=== PATIENT | female | born 1950 | race Caucasian/White ===

== ENCOUNTER 2017-10-09 14:28 | Emergency (ER) | payer MEDICARE, OTHER ==
[~2017-10-09] VITALS: Ht 162.6 cm; Wt 122.5 kg
[~2017-10-09 14:28] MED LIST: ALBU90OI INH; ASPI81CH PO; ATOR10 PO; Acerola C500 MG PO; CEPH500 PO; CITA20 PO; Dazidox10 MG PO; FERR325 PO; FURO20 PO; HYDACE5 PO; IBUP800; LEVSOD100 PO; LISI20 PO; LISI5 PO; NEBI5 PO; OMEP20ER PO; OXYC5 PO; POTA10T PO; Prilosec Otc20 MG PO; TRAM50 PO; VITAMIN D-32000 UNI1 PO; Zofran Odt8 MG PO
[2017-10-09 15:00] LABS: BASOPHILS ABSOLUTE AUTO 0.04 K/mm3 (0.00-0.23); BASOPHILS PERCENT AUTO 1 % (0-2); EOSINOPHILS ABSOLUTE AUTO 0.21 K/mm3 (0.00-0.68); EOSINOPHILS PERCENT AUTO 3 % (0-6); Hematocrit 36.3 % (33.0-51.0); Hemoglobin 11.9 g/dL (11.5-16.0); IMMATURE GRAN ABSOLUTE AUTO 0.02 K/mm3 (0.00-0.10); IMMATURE GRAN PERCENT AUTO 0 % (0-1); LYMPHOCYTES ABSOLUTE AUTO 1.52 K/mm3 (0.84-5.20); LYMPHOCYTES PERCENT AUTO 22 % (21-46); MONOCYTES ABSOLUTE AUTO 0.58 K/mm3 (0.16-1.47); MONOCYTES PERCENT AUTO 8 % (4-13); Mean Corpuscular HGB 28.5 pg (26.0-34.0); Mean Corpuscular HGB Conc 32.8 g/dL (31.5-36.5); Mean Corpuscular Volume 87 fL (80-100); Mean Platelet Volume 9.6 fL (9.1-12.4); NEUTROPHILS PERCENT AUTO 66 % (41-73); Platelet Count 255 K/mm3 (150-400); RDW Coefficient Variation 14.3 % (11.7-14.2); RDW Standard Deviation 45.9 fL (35.1-46.3); Red Blood Cell Count 4.18 M/mm3 (3.80-5.20); White Blood Cell Count 6.87 K/mm3 (4.00-11.30)
[2017-10-09 15:28] LABS: Alanine Aminotransfer (ALT/SGP 17 U/L (12-78); Albumin, Blood 3.4 g/dL (3.4-5.0); Albumin/Globulin Ratio 0.8 (0.8-1.8); Alk Phos 131 U/L (50-136); Anion Gap 9 mmol/L (6-16); Aspartate Aminotrans (AST/SGOT 13 U/L (12-37); Bilirubin, Total 0.4 mg/dL (0.1-1.0); Blood Urea Nitrogen 20 mg/dL (8-24); Bun/Creatinine Ratio 23.6 (12.0-20.0); CO2, Blood 25 mmol/L (21-32); Calcium, Blood 8.5 mg/dL (8.5-10.1); Chloride, Blood 104 mmol/L (98-108); Creatinine, Blood 0.85 mg/dL (0.40-1.00); Globulin, Blood 4.2 g/dL (2.2-4.0); Glomerular Filtration Rate >60 (60-); Glucose, Blood 107 mg/dL (70-99); Potassium, Blood 4.1 mmol/L (3.5-5.5); Sodium, Blood 138 mmol/L (136-145); Total Protein, Blood 7.6 g/dL (6.4-8.2)
[2017-10-09] MEDS ORDERED: ELIQUIS5 MG PO (16:47)
== END 2017-10-09 20:10 | disposition home or self-care (01) ==
LOC: ER 14:28 → CT 14:30 → EDSTATUS 14:30 → ER 20:10
PROVIDERS: Emergency Medicine
DX: C50.912 Malignant neoplasm of unspecified site of left female breast (principal); C50.911 Malignant neoplasm of unspecified site of right female breast; C79.31 Secondary malignant neoplasm of brain; G40.109 Localization-related (focal) (partial) symptomatic epilepsy and epileptic syndromes with simple partial seizures, not intractable, without status epilepticus; I11.0 Hypertensive heart disease with heart failure; I50.9 Heart failure, unspecified; E03.9 Hypothyroidism, unspecified
CPT/HCPCS: 70470; 80053; 85025; 96365; 96375; 99285; J1100; J1953; Q9967

== ENCOUNTER → 2018-12-14 | Outpatient (CLI) | payer MEDICARE, OTHER ==
[~2018-12-14] MED LIST changes: +ELIQUIS5 MG PO
[2018-12-14 17:30] LABS: Adenovirus F 40/41 Not Detected (NOT DETECT); Astrovirus Not Detected (NOT DETECT); Campylobacter Sp Not Detected (NOT DETECT); Cryptosporidium Not Detected (NOT DETECT); Cyclospora Cayetanensis Not Detected (NOT DETECT); E. Coli O157 Not Detected (NOT DETECT); Entamoeba Histolytica Not Detected (NOT DETECT); Enteroaggregative E. coli-EAEC Not Detected (NOT DETECT); Enteropathogenic E. coli-EPEC Not Detected (NOT DETECT); Enterotoxigenic E. coli-ETEC Not Detected (NOT DETECT); Giardia Lamblia Not Detected (NOT DETECT); Norovirus GI/GII Not Detected (NOT DETECT); Plesiomonas Shigelloides Not Detected (NOT DETECT); Rotavirus A Not Detected (NOT DETECT); Salmonella Sp Not Detected (NOT DETECT); Sapovirus Not Detected (NOT DETECT); Shiga Toxin-prod E. coli-STEC Not Detected (NOT DETECT); Shigella/Enteroin E. coli-EIEC Not Detected (NOT DETECT); Vibrio Cholerae Not Detected (NOT DETECT); Vibrio Sp Not Detected (NOT DETECT); Yersinia Enterocolitica Not Detected (NOT DETECT)
== END | disposition home or self-care (01) ==
LOC: LAB 09:51 → LAB SHORT 09:51 → EDSTATUS 12-10 12:25 → LAB FUT 12-10 12:25
PROVIDERS: Internal Medicine
DX: K58.9 Irritable bowel syndrome, unspecified (principal); R19.7 Diarrhea, unspecified
CPT/HCPCS: 87507

== ENCOUNTER 2018-12-22 08:50 | Emergency (ER) | payer MEDICARE, OTHER ==
[~2018-12-22] VITALS: Ht 162.6 cm; Wt 129.3 kg
[2018-12-22] MEDS ORDERED: Percocet 5-3251 EACH PO (13:50)
[2018-12-22] MEDS ORDERED: Cyclobenzaprine5 MG PO (13:50)
== END 2018-12-22 14:00 | disposition home or self-care (01) ==
LOC: ER 08:50
DX: S39.012A Strain of muscle, fascia and tendon of lower back, initial encounter (principal); I11.0 Hypertensive heart disease with heart failure; I50.9 Heart failure, unspecified; I48.91 Unspecified atrial fibrillation; Z85.3 Personal history of malignant neoplasm of breast; Z91.048 Other nonmedicinal substance allergy status; Z79.899 Other long term (current) drug therapy; W18.2XXA Fall in (into) shower or empty bathtub, initial encounter; Y92.002 Bathroom of unspecified non-institutional (private) residence as the place of occurrence of the external cause
CPT/HCPCS: 72100; 96374; 99283-25; A9270-GY; J1100; J1885; J3010

== ENCOUNTER 2019-05-24 08:32 | Day surgery (SDC) | payer MEDICARE, OTHER ==
[~2019-05-24 08:32] MED LIST changes: +Cyclobenzaprine5 MG PO; +Percocet 5-3251 EACH PO
[2019-06-10] MEDS ORDERED: FOLI1 PO (10:39)
[2019-06-10] MEDS ORDERED: FERSU300 PO (10:39)
== END 2019-05-24 23:01 | disposition home or self-care (01) ==
LOC: MOI US 08:32 → EDSTATUS 08:45 → MOI US 23:01
DX: C77.3 Secondary and unspecified malignant neoplasm of axilla and upper limb lymph nodes (principal); C50.112 Malignant neoplasm of central portion of left female breast
CPT/HCPCS: 38505; 76942; 88305; 88341; 88342; A4648

== ENCOUNTER → 2019-05-25 | Outpatient (CLI) | payer MEDICARE, OTHER ==
[~2019-05-25] MED LIST changes: +FERSU300 PO; +FOLI1 PO
[2019-05-26 13:56] LABS: Stool Occult Bld Immuno 1 Positive (NEGATIVE); Stool Occult Bld Immuno 2 Positive (NEGATIVE)
== END | disposition home or self-care (01) ==
LOC: LAB SHORT 11:00 → LAB 11:00 → LAB FUT 05-10 13:20
PROVIDERS: Internal Medicine Gastroenterology
DX: D64.9 Anemia, unspecified (principal)
CPT/HCPCS: 82274

== ENCOUNTER 2019-06-14 06:58 | Day surgery (SDC) | payer MEDICARE, OTHER | END 2019-06-14 23:09 | disposition home or self-care (01) | LOC: MOI US 06:58 | DX: C77.3 Secondary and unspecified malignant neoplasm of axilla and upper limb lymph nodes (principal) | CPT/HCPCS: 19285; 19286 ==

== ENCOUNTER 2019-06-24 09:30 | Day surgery (SDC) | payer MEDICARE, OTHER ==
[~2019-06-24] VITALS: Ht 165.1 cm; Wt 134.7 kg
--- NOTE | 2019-06-24 10:40 | NUR ---
History, Chart, Medications and Allergies reviewed before start of procedure.Patient confirms NPO status and agrees with scheduled surgery. Patient reports completing Chlorhexadine shower X2 prior to admission to hospital.Surgical site prepped with 2% Chlorhexidine cloth wipe. Lungs clear T/O to Auscultation.
--- NOTE | 2019-06-24 14:26 | NUR ---
Dressing to procedure site clean, dry, intact with no visible drainage, swelling, erythema or bruising noted. PATIENT STATES PAIN LEVEL AT 4/10.
--- NOTE | 2019-06-24 14:58 | NUR ---
RESUMED CARE OF PATIENT. PATIENT STATES SHE HAS 5/10 PAIN TO LEFT AXILLARY. STATES IT IS TOLERABLE. DENIES NAUSEA. TOLERATING PO FLUID. ENCOURAGED TO DEEP BREATH AND COUPH. BIOX 89-92% ON RA. APPLIED 2L O2/NC. WILL CONTINUE TO ASSESS NEED FOR SUPPLEMENTAL O2.
--- NOTE | 2019-06-24 15:27 | NUR ---
WILL REVIEW DISCHARGE INSTRUCTIONS WITH PATIENT WHEN HER ARRIVES TO DAY SURGERY.
--- NOTE | 2019-06-24 15:39 | NUR ---
SUPPLEMENTAL O2 REMOVED TO ATTEMPT WEAN. CONTINUOUS BIOX INACT. WILL MONITOR.
--- NOTE | 2019-06-24 15:45 | NUR ---
BIOX 87% RA. 2L O2/NC PLACED. PATIENT REPORTS THIS IS A NORMAL OCCURANCE FOR HER AFTER SURGERY. DENIES SOB. ENCOURAGED DEEP BREATHS AND COUGH.
--- NOTE | 2019-06-24 15:48 | NUR ---
LUNGS CLEAR T/O TO AUSCULTATION.
--- NOTE | 2019-06-24 16:22 | NUR ---
1618- UP TO DRESS. NO ASSIST NEEDED. TOOK A SHORT WALK. 1620- BACK IN BED AFTER UP TO WALK AND VOID. BIOX 89% RA. 2L O2/NC APPLIED.
--- NOTE | 2019-06-24 16:31 | NUR ---
INSTRUCTIONS ON BULB SUCTION CARE AND DRAINAGE GIVEN TO PATIENT. WRITTEN COPY GIVEN TO TAKE HOME. SITTING ON SIDE OF BED WEARING 2L O2/NC. BIOX 94%. TO DRIVE HOME. REPORT GIVEN TO MOMO FLETCHER RN.
--- NOTE | 2019-06-24 17:17 | NUR ---
1700- TITRATED FROM 1L NC DOWN TO ROOM AIR. PT ONLY HAS DESATS WHEN TALKING, BIOX RETURNS TO MID 90'S AFTER DEEP BREATHS. PT STATES THIS IS NORMAL FOR HER AFTER HER SURGERIES. THIS RN FEELS COMFORTABLE DISCHARGING PT AND PT READY TO BE DISCHARGED. HAS BEEN SITTING AT EDGE OF BED DOING WELL. FINISHED REVIEWING DC INSTRUCTIONS WITH PT AND IV REMOVED. RX GIVEN TO PT AND . Discharged via wheelchair to private car for ride home. DRG C/D/I TO SURGICAL SITE. PER DR RICHTER, PT TO RESTART BLOOD THINNER TOMORROW. PT AWARE.
== END 2019-06-24 17:15 | disposition home or self-care (01) ==
LOC: RAD 09:30 → ORSCMMR 09:31 → RAD 10:15
PROVIDERS: Surgery
PROC: 07B60ZZ Excision of Left Axillary Lymphatic, Open Approach (ICD-10-PCS; principal; 2019-06-24 11:15)
DX: C77.3 Secondary and unspecified malignant neoplasm of axilla and upper limb lymph nodes (principal); C50.112 Malignant neoplasm of central portion of left female breast; I11.0 Hypertensive heart disease with heart failure; I50.9 Heart failure, unspecified; I48.91 Unspecified atrial fibrillation; I42.8 Other cardiomyopathies; K21.9 Gastro-esophageal reflux disease without esophagitis; G47.33 Obstructive sleep apnea (adult) (pediatric); D64.9 Anemia, unspecified; E66.9 Obesity, unspecified; Z79.899 Other long term (current) drug therapy; Z79.01 Long term (current) use of anticoagulants; Z99.89 Dependence on other enabling machines and devices; Z91.048 Other nonmedicinal substance allergy status
CPT/HCPCS: 88307; A9270-GY; J0690; J1100; J2405; J2704; J2710; J3010; J7120; Q9968

== ENCOUNTER 2019-08-03 09:53 | Day surgery (SDC) | payer OTHER, MEDICARE ==
[~2019-08-03] VITALS: Ht 165.1 cm; Wt 133.9 kg
--- NOTE | 2019-08-03 11:23 | NUR ---
Ambulatory in Day Surgery. Surgical site prepped with 2% Chlorhexidine cloth wipe. History, Chart, Medications and Allergies reviewed before start of procedure.Lungs clear T/O to Auscultation. Patient confirms NPO status and agrees with scheduled surgery. Patient States Post-Procedure ride home has been arranged. Patient reports completing Chlorhexadine shower X2 prior to admission to hospital.
--- NOTE | 2019-08-03 11:31 | NUR ---
"DAY SURGERY RN | REPORT FROM GERRI FAUSTIN"
--- NOTE | 2019-08-03 12:09 | NUR ---
"DAY SURGERY RN | REPORT BACK TO GERRI FAUSTIN. NO ISSUES."
--- NOTE | 2019-08-03 14:29 | NUR ---
REVIEWED DC INSTERUCTIONS WITH PATIENT AND , BOTH OF WHOM VERBALIZE UNDERSTANDING OF ALL INSTRUCTIONS GIVEN. PT DRESSED SELF AT BEDSIDE. WAS MEDICATED FOR PAIN PRIOR TO DC HOME WITH 2 PERCOCET. PT HAS OXYCODONE AT HOME FOR CHRONIC PAIN AND DID NOT RECEIVE PRESCRIPTION TODAY. IV DC TIP INTACT AND PT DC HOME VIA WC WITH TO DRIVE HER.
--- NOTE | 2019-08-03 14:31 | NUR ---
NO SWELLING OR BLEEDING NOTED TO MEDIPORT AREA, UPPER CHEST, NECK.
== END 2019-08-03 22:45 | disposition home or self-care (01) ==
LOC: ORSCSDS 09:53 → ORSCMMR 09:53 → ORSCSDS 15:30
PROVIDERS: Surgery
PROC: B5161ZA Fluoroscopy of Right Subclavian Vein using Low Osmolar Contrast, Guidance (ICD-10-PCS; principal; 2019-08-03 11:45)
PROC: 05H533Z Insertion of Infusion Device into Right Subclavian Vein, Percutaneous Approach (ICD-10-PCS; principal; 2019-08-03 11:45)
DX: C50.112 Malignant neoplasm of central portion of left female breast (principal); I10 Essential (primary) hypertension; I48.91 Unspecified atrial fibrillation; Z79.01 Long term (current) use of anticoagulants; G47.33 Obstructive sleep apnea (adult) (pediatric); J45.909 Unspecified asthma, uncomplicated; K21.9 Gastro-esophageal reflux disease without esophagitis; G40.909 Epilepsy, unspecified, not intractable, without status epilepticus; Z79.899 Other long term (current) drug therapy; E66.01 Morbid (severe) obesity due to excess calories; Z68.42 Body mass index [BMI] 45.0-49.9, adult
CPT/HCPCS: 77001; C1788; J0690; J1100; J1642; J2250; J2405; J2704; J3010; J7120

== ENCOUNTER 2020-11-19 21:57 | Inpatient (IN) | payer MEDICARE, OTHER ==
[~2020-11-19] VITALS: Ht 162.6 cm; Wt 127.3 kg
[2020-11-19 22:35] LABS: Calcium, Ionized (POC) 1.18 mmol/L (1.10-1.46); Chloride (POC) 100 mmol/L (98-108); Creatinine (POC) 0.9 mg/dL (0.6-1.0); Glucose (ISTAT POC) 192 mg/dL (70-99); Hemoglobin (POC) 11.9 g/dL (12.0-16.0); Potassium (POC) 4.5 mmol/L (3.5-5.5); Sodium (POC) 129 mmol/L (135-148); Total CO2 (POC) 21 mmol/L (21-32)
[2020-11-19 22:37] LABS: Hematocrit 33.6 % (33.0-51.0); Hemoglobin 11.3 g/dL (11.5-16.0); Mean Corpuscular HGB 31.2 pg (26.0-34.0); Mean Corpuscular HGB Conc 33.6 g/dL (31.5-36.5); Mean Corpuscular Volume 93 fL (80-100); Mean Platelet Volume 9.9 fL (9.1-12.4); Platelet Count 225 K/mm3 (150-400); RDW Coefficient Variation 16.6 % (11.7-14.2); RDW Standard Deviation 56.5 fL (35.1-46.3); Red Blood Cell Count 3.62 M/mm3 (3.80-5.20)
[2020-11-19 22:39] LABS: BASOPHILS ABSOLUTE AUTO 0.01 K/mm3 (0.00-0.23); BASOPHILS PERCENT AUTO 2 % (0-2); EOSINOPHILS PERCENT AUTO 0 % (0-6); IMMATURE GRAN PERCENT AUTO 0 % (0-1); LYMPHOCYTES PERCENT AUTO 92 % (21-46); MONOCYTES ABSOLUTE AUTO 0.02 K/mm3 (0.16-1.47); MONOCYTES PERCENT AUTO 3 % (4-13); NEUTROPHILS ABSOLUTE AUTO 0.02 K/mm3 (1.96-9.15); NEUTROPHILS PERCENT AUTO 3 % (41-73)
[2020-11-19 22:41] LABS: White Blood Cell Count 0.65 K/mm3 (4.00-11.30)
[2020-11-19 22:50] LABS: Alanine Aminotransfer (ALT/SGP 22 U/L (12-78); Albumin, Blood 2.8 g/dL (3.4-5.0); Albumin/Globulin Ratio 0.6 (0.8-1.8); Alk Phos 117 U/L (50-136); Anion Gap 8 mmol/L (6-16); Aspartate Aminotrans (AST/SGOT 12 U/L (12-37); Bilirubin, Total 1.1 mg/dL (0.1-1.0); Blood Urea Nitrogen 24 mg/dL (8-24); Bun/Creatinine Ratio 25.4 (12.0-20.0); CO2, Blood 21 mmol/L (21-32); Calcium, Blood 8.7 mg/dL (8.5-10.1); Chloride, Blood 101 mmol/L (98-108); Creatinine, Blood 0.94 mg/dL (0.40-1.00); Globulin, Blood 4.5 g/dL (2.2-4.0); Glomerular Filtration Rate >60 (60-); Glucose, Blood 183 mg/dL (70-99); Potassium, Blood 4.7 mmol/L (3.5-5.5); Sodium, Blood 130 mmol/L (136-145); Total Protein, Blood 7.3 g/dL (6.4-8.2); Troponin I <0.015 ng/mL (0.000-0.040)
[2020-11-20 00:30] LABS: C DIFFICILE DNA NEGATIVE (Negative)
[2020-11-20 03:03] LABS: Source, Urine Catheter
[2020-11-20 03:06] LABS: Appearance, Urine Clear (Clear); Bilirubin, Urine Neg (Neg); Blood, Urine 2+ (Neg); Color, Urine Amber (P-Yellow); Glucose Qualitative, Urine Neg (Neg); Ketones, Urine Neg (Neg); Leukocyte Esterase, Urine Neg (Neg); Nitrite, Urine Neg (Neg); Protein, Urine 2+ (Neg); Specific Gravity, Urine 1.015 (1.003-1.022); Urobilinogen, Urine NORM (Normal)
[2020-11-20 03:10] LABS: Red Blood Cells, Urine 0-2 /hpf (0-2); Squamous Epithelial Cells Few /hpf (Few)
[2020-11-20 03:11] LABS: Amorphous Mod (0-Heavy); Bacteria Few /hpf; Hyaline Casts 0-2 /lpf (0-2); Mucus Light (0-Heavy)
--- NOTE | 2020-11-20 03:22 | NUR ---
ASSUMED PT CARE FROM RAMIN ZALDIVAR IN ED PT ARRIVED ON UNIT NOTED TO BE AFIB WITH HR 150-180'S. PER REPORT PT WAS GIVEN A CARDIZEM BOLUS WITH NO GTT TO FOLLOW, WELL WAS GIVEN ONE DOSE OF DIGOXIN WITH NO EFFECT. PT ARRIVED SALINE LOCKED. BP'S LABILE AND UNABLE TO OBTAIN AN ACCURATE BP. DR. RÍOS CALLED REGARDING ELEVATED HR AND LABILE BP'S. NEW ORDERS FOR AMIODARONE BOLUS FOLLOWED BY GTT, WELL TO TRANSFER FROM PCU TO ICU STATUS. PT ALERT AND ORIENTED AND ABLE TO MAKE NEEDS KNOWN. DENIES CHEST PAIN, DIZZINESS, WELL N/V. UNABLE TO COMPLETE HEALTH HX D/T PT FALLING ASLEEP MID CONVERSATION, WELL HER BEING VERY FORGETFUL AND IS A POOR HISTORIAN. RECTAL TUBE IN PLACE AND PATENT AND DRAINING TO GRAVITY. SHAW CATHETER PLACED D/T URINARY RETENTION, WHICH IS PATENT AND DRAINING TO GRAVITY. PT VERY TENDER AND RED WITH WHAT APPEARS TO BE YEAST TO PERINEAL AREA. OVERALL IS INTACT WITH MOTTLING NOTED TO BILATERAL KNEES AND FLUSHING NOTED TO LEFT CHEEK AND NECK. PERIPHERAL EXTREMITIES ARE COOL TO TOUCH AND DUSKY WITH POOR CAP REFILL. PT HAS A MEDIPORT TO RIGHT UPPER CHEST THAT WAS ACCESSED IN ED, WHICH CURRENTLY HAS AMIODARONE INFUSING AT 1MG/MIN. NS INFUSING AT 75MLS/HR PERIPHERALLY TO 20G IN RIGHT WRIST. CALL LIGHT WITHIN REACH AND PT IS ABLE TO MAKE NEEDS KNOWN. WILL CONTINUE TO MONITOR UNTIL REPORT IS HANDED OFF TO ONCOMING RN.
[2020-11-20 06:14] LABS: Hematocrit 30.9 % (33.0-51.0); Hemoglobin 10.4 g/dL (11.5-16.0); Mean Corpuscular HGB 30.8 pg (26.0-34.0); Mean Corpuscular HGB Conc 33.7 g/dL (31.5-36.5); Mean Corpuscular Volume 91 fL (80-100); Mean Platelet Volume 9.9 fL (9.1-12.4); Platelet Count 149 K/mm3 (150-400); RDW Coefficient Variation 16.6 % (11.7-14.2); RDW Standard Deviation 55.9 fL (35.1-46.3); Red Blood Cell Count 3.38 M/mm3 (3.80-5.20)
[2020-11-20 06:30] LABS: White Blood Cell Count 0.31 K/mm3 (4.00-11.30)
[2020-11-20 06:31] LABS: Alanine Aminotransfer (ALT/SGP 19 U/L (12-78); Albumin, Blood 2.5 g/dL (3.4-5.0); Albumin/Globulin Ratio 0.6 (0.8-1.8); Alk Phos 99 U/L (50-136); Anion Gap 6 mmol/L (6-16); Aspartate Aminotrans (AST/SGOT 5 U/L (12-37); Bilirubin, Total 0.8 mg/dL (0.1-1.0); Blood Urea Nitrogen 21 mg/dL (8-24); Bun/Creatinine Ratio 22.4 (12.0-20.0); CO2, Blood 22 mmol/L (21-32); Calcium, Blood 8.5 mg/dL (8.5-10.1); Chloride, Blood 102 mmol/L (98-108); Creatinine, Blood 0.94 mg/dL (0.40-1.00); Globulin, Blood 4.1 g/dL (2.2-4.0); Glomerular Filtration Rate >60 (60-); Glucose, Blood 197 mg/dL (70-99); Potassium, Blood 4.4 mmol/L (3.5-5.5); Sodium, Blood 130 mmol/L (136-145); Total Protein, Blood 6.6 g/dL (6.4-8.2)
[2020-11-20 07:08] LABS: BASOPHILS PERCENT MAN 0 % (0-2); EOSINOPHILS PERCENT MAN 0 % (0-6); LYMPHOCYTES ABSOLUTE MAN 0.28 K/mm3 (0.84-5.20); LYMPHOCYTES PERCENT MAN 92 % (21-46); MONOCYTES ABSOLUTE MAN 0.01 K/mm3 (0.16-1.47); MONOCYTES PERCENT MAN 4 % (4-13); NEUTROPHILS ABSOLUTE MAN 0.01 K/mm3 (1.96-9.15); SEG NEUTROPHILS PERCENT MAN 4 % (41-73); TOTAL CELLS COUNTED 25
--- NOTE | 2020-11-20 07:30 | NUR ---
PT A&O X4. SHE REPORTS FEELING VERY TIRED AND REQUESTS THAT BLINDS REMAIN CLOSED AND THE ROOM DARK. ECG SHOWS AFIB WITH RATE 110-130'S. BP STABLE. AMIODARONE DRIP CONTINUES @ 1 MG. LUNGS DIMINISHED IN THE BASES L>R. SPO2>90% ON 2 LITERS NASAL CANULA. EXERTIONAL DYSPNEA NOTED. PT REPORTS THAT THIS IS WORSE THAN HER BASELINE. NO NOTED COUGH. PT REPORTS INTERMITTENT NAUSEA. REQUESTS SIPS OF WATER AND HAS TOLERATED THAT WELL. RECTAL TUBE WITH SMALL AMOUNT OF BROWN, LIQUID STOOL. SHAW WITH SMALL AMOUNT OF DARK, YELLOW URINE TO BSD. MG+ RIDER INITIATED-SEE EMAR. ANTICIPATE ECHO LATER TODAY. CONTINUE NEUTROPENIC PRECAUTIONS.
--- NOTE | 2020-11-20 11:30 | NUR ---
PT REMAINS A&OX4. DENIES PAIN. NO SOB AT REST. ECG CONTINUES AFIB WITH RATE 110-130'S. AMIODARONE DRIP @ 0.5 MG/MIN. MAP TRENDING 50-70'S. PT CONTINUES TO REPORT INTERMITTENT NAUSEA. TOLERATING SIPS OF WATER. PT ALLOWED RN TO DO PARTIAL BATH AND PARTIAL LINEN CHANGE. TOLERATED WELL.
--- NOTE | 2020-11-20 15:14 | NUR ---
Spoke with Bedside RN Michelle prior to Pt visit and discussed case. Pt resting in bed with her eyes closed upon arrival. Pt's spouse Robson is at bedside. Offered therapeutic listening as Robson discusses Pt's denis with cancer for quite sometime. Pt has becomed increasing tired since her cancer fight, more so over the last few days since developing diarrhea. Continued therapeutic listening. Pt opens her eyes intermittently and attempts to engage in conversation but then closes her eyes. Briefly discussed code status and educated on life sustaining treatments of CPR including risk factors and implications. Pt does not respond or provide any thought. Pt's spouse Robson wishes for Pt's code status to remain full code. Continued therapeutic listening. Ended visit to allow spouse to visit with Pt. Palliative Care will remain available for supportive and therapeutic visits.
[2020-11-20] MEDS ORDERED: OXYC10TA19 PO (15:27)
--- NOTE | 2020-11-20 16:00 | NUR ---
PT REPORTS NAUSEA AND GENERALIZED PAIN-MED WITH ZOFRAN 4 MG IV AND OXYCODONE 10 MG PO X 1-SEE EMAR. APROX. 150 CC LIQUID STOOL OUT THIS SHIFT. PT ALSO GIVEN IMMODIUM PO-SEE EMAR. PT DRANK AN ENSURE WITH MEDS. ECG CONTINUES AFIB WITH RATE 110-130'S. HR UP TO 170'S WITH EXERTION AND PT NOTED TO HOW PROFOUND EXERTIONAL DYSPNEA. MAINTAINS SATS>90% ON 2 LITERS NASAL CANULA. SHAW CONTINUES WITH SMALL AMOUNT OF DARK, YELLOW URINE TO UROMETER. HAD LENGHTY DISCUSSION WITH PT AND SPOUSE REGARDING RESUSCITATION/CPR/CODE STATUS. PT SPOUSE INITIATLLY COMMENTED "WE ARE NOT READY TO PULL THE PLUG YET." PT AND SPOUSE INFORMED THAT PT IS NOT ON LIFE SUPPORT. DISCUSSED AT LENGTH PAST MEDICAL HISTORY, AND METS TO BRAIN, LUNG, AND LYMPH NODES. DISCUSSED WHETER OR NOT PT WOULD WANT CPR, DEFIBRILLATION, FULL CODE/RESUSCITATION. PT SPOUSE VERY INTERACTIVE AND VERBALIZED UNDERSTANDING. PT APPEARS VERY WITHDRAWN AND DID NOT DISCUSS THE MATTER AT ALL. PT SPOUSE WILL DISCUSS WITH PT AND HER SONS. FOR NOW, PT IS TO REMAIN FULL CODE.
--- NOTE | 2020-11-20 18:45 | NUR ---
DESPITE BEING MEDICATED WITH IMMODIUM, PT INCONTINENT OF LARGE AMOUNT OF BROWN, LIQUID STOOL AROUND THE RECTAL TUBE. REPOSITIONED THE RECTAL TUBE AND IMMEDIATELY, A LARGE AMOUNT OF STOOL DRAINED INTO THE BAG WELL. PT GIVEN PARTIAL BATH AND LINEN CHANGE COMPLETED. PT SOB WITH POSITION CHANGES, BUT MAINTAINS SATS >90% HR UP TO 160'S WITH MINIMAL EXERTION/ACTIVITY.AMIODARONE DRIP CONTINUES @0.5 MG/MIN. POSITIONED TO COMFORT ON LEFT SIDE.
--- NOTE | 2020-11-20 19:00 | NUR ---
ASSUMED CARE OF PT, SHE APPEARS TO BE SLEEPING AT THIS TIME, SATS ARE MAINTAINING WITH OXYGEN VIA NASAL CANNULA, AMIODARONE GTT INFUSING, AFIB CONTINUES, RATES 110-130S AT THIS TIME. PT DENIES NEEDS AT THIS TIME, STATES THAT ONLY PAIN IS WHEN SHE COUGHS HOWEVER DOES NOT RATE PAIN AT THIS TIME AND INDICATES THAT SHE WISHES TO RETURN TO SLEEP.
--- NOTE | 2020-11-20 22:36 | NUR ---
HEART RATE PT REMAINS IN AFIB, RATES ARE NOTED LOW 110S AND HIGH 180S, SUSTAINING 130-150S AT THIS TIME, HOSPITALIST MAURICIO CONTACTED AND DISCUSSED CURRENT RATES WELL PAST MEDICATIONS FOR RATE CONTROL AND RESULTING BLOOD PRESSURES, NEW ORDERS NOTED, WILL ADMINISTER LOPRESSOR IV WHEN AVAILABLE FROM PHARMACY.
[2020-11-21 00:53] LABS: Hematocrit 37.1 % (33.0-51.0); Hemoglobin 12.7 g/dL (11.5-16.0); Mean Corpuscular HGB 30.7 pg (26.0-34.0); Mean Corpuscular HGB Conc 34.2 g/dL (31.5-36.5); Mean Corpuscular Volume 90 fL (80-100); Mean Platelet Volume 11.3 fL (9.1-12.4); Platelet Count 152 K/mm3 (150-400); RDW Coefficient Variation 16.5 % (11.7-14.2); RDW Standard Deviation 54.1 fL (35.1-46.3); Red Blood Cell Count 4.14 M/mm3 (3.80-5.20)
[2020-11-21 00:54] LABS: BASOPHILS PERCENT AUTO 0 % (0-2); EOSINOPHILS PERCENT AUTO 0 % (0-6); IMMATURE GRAN PERCENT AUTO 0 % (0-1); LYMPHOCYTES ABSOLUTE AUTO 0.29 K/mm3 (0.84-5.20); LYMPHOCYTES PERCENT AUTO 74 % (21-46); MONOCYTES ABSOLUTE AUTO 0.01 K/mm3 (0.16-1.47); MONOCYTES PERCENT AUTO 3 % (4-13); NEUTROPHILS ABSOLUTE AUTO 0.09 K/mm3 (1.96-9.15); NEUTROPHILS PERCENT AUTO 23 % (41-73)
[2020-11-21 00:55] LABS: White Blood Cell Count 0.39 K/mm3 (4.00-11.30)
[2020-11-21 01:08] LABS: Bun/Creatinine Ratio 15.8 (12.0-20.0); Creatinine, Blood 1.71 mg/dL (0.40-1.00); Magnesium, Blood 2.2 mg/dL (1.6-2.4); Potassium, Blood 4.8 mmol/L (3.5-5.5)
--- NOTE | 2020-11-21 01:10 | NUR ---
PT HEART RATE CONTINUES TO TREND UP, CALL PLACED TO DR RÍOS'S CELL, AWAITING RETURN CALL
--- NOTE | 2020-11-21 01:15 | NUR ---
SPOKE WITH DR RÍOS REGARDING MEDICATIONS ADMINISTERED AND PT'S VITAL SIGNS AT THIS TIME. ORDERS TO INCREASE AMIODARONE RATE BACK TO 1 MG/MIN, AMIODARONE TITRATED PER ORDERS. DR RÍOS STATES THAT HE WILL ROUND ON PT WITHIN 30 MINUTES.
[2020-11-21 02:50] LABS: International Normalized Ratio 1.21; Prothrombin Time Results 12.8 Sec (9.7-11.5)
[2020-11-21 03:55] LABS: Hemoglobin 12.1 g/dL (11.5-16.0); Mean Corpuscular HGB 30.6 pg (26.0-34.0); Mean Corpuscular HGB Conc 33.6 g/dL (31.5-36.5); Mean Corpuscular Volume 91 fL (80-100); Mean Platelet Volume 11.4 fL (9.1-12.4); Platelet Count 141 K/mm3 (150-400); RDW Coefficient Variation 16.5 % (11.7-14.2); RDW Standard Deviation 55.2 fL (35.1-46.3); Red Blood Cell Count 3.96 M/mm3 (3.80-5.20)
[2020-11-21 04:02] LABS: White Blood Cell Count 0.42 K/mm3 (4.00-11.30)
[2020-11-21 04:06] LABS: Albumin, Blood 1.8 g/dL (3.4-5.0); Albumin/Globulin Ratio 0.5 (0.8-1.8); Bilirubin, Total 0.8 mg/dL (0.1-1.0); Bun/Creatinine Ratio 14.3 (12.0-20.0); Calcium, Blood 8.6 mg/dL (8.5-10.1); Creatinine, Blood 2.03 mg/dL (0.40-1.00); Globulin, Blood 3.9 g/dL (2.2-4.0); Potassium, Blood 4.8 mmol/L (3.5-5.5); Total Protein, Blood 5.7 g/dL (6.4-8.2)
[2020-11-21 04:09] LABS: PCO2 Arterial 42.5 mmHg (35-45); PO2 Arterial 60.7 mmHg (80-100); pH Blood Arterial 7.02 (7.35-7.45)
[2020-11-21 04:24] LABS: BAND PERCENT MAN 2 % (0-8); BASOPHILS PERCENT MAN 0 % (0-2); EOSINOPHILS PERCENT MAN 1 % (0-6); LYMPHOCYTES % ATYPICAL MANUAL 3 % (0-0); LYMPHOCYTES ABSOLUTE MAN 0.35 K/mm3 (0.84-5.20); LYMPHOCYTES PERCENT MAN 82 % (21-46); METAMYELOCYTE PERCENT MAN 2 % (0-0); MONOCYTES ABSOLUTE MAN 0.01 K/mm3 (0.16-1.47); MONOCYTES PERCENT MAN 4 % (4-13); NEUTROPHILS ABSOLUTE MAN 0.03 K/mm3 (1.96-9.15); SEG NEUTROPHILS PERCENT MAN 6 % (41-73); TOTAL CELLS COUNTED 100
--- NOTE | 2020-11-21 05:15 | NUR ---
SPOUSE ARRIVES TO BEDSIDE, SPEAKING WITH DR RÍOS AT THIS TIME
--- NOTE | 2020-11-21 05:30 | NUR ---
PT IS NOW DNR, FAMILY PLANS TO MOVE TO COMFORT CARE AFTER PT'S SONS ARRIVE TO BEDSIDE.
--- NOTE | 2020-11-21 06:10 | NUR ---
0140: DR RÍOS AT BEDSIDE, ORDERS TO SET UP FOR CARDIOVERSION, PADS IN PLACE TO ANTERIOR AND POSTERIOR LEFT CHEST WALL. MONITOR AT BEDSIDE. RT NOTIFIED, PIPE TESTING TECHNICIAN NOTIFIED 0143 RT AT BEDSIDE, PIPE TESTING TECHNICIAN AT BEDSIDE, DR RÍOS AT BEDSIDE VERSED 1 MG IV ADMINISTERED PER ORDERS 0146: SYNCHRONIZED CARDIOVERSION SHOCK DELIVERED 100 JOULES, PT REMAINS IN AFIB, RATE 150-170S 0148: SYNCHRONIZED CARDIOVERSION SHOCK DELIVERED 120 JOULES, PT REMAINS IN AFIB WITH RVR 0150: SNORING RESPIRATIONS NOTED, JAW THRUST MANEUVER BY RT CHANTAL SOFIA. DR RÍOS ORDERS ROMAZICON 0.25 MG IV NOW, ADMINISTERED AT THIS TIME 0154: SNORING RESPIRATIONS CONTINUE, CONTINUES TO BE DIFFICULT TO AROUSE, CONTINUES TO REQUIRE JAW THRUST MANEUVER. DR RÍOS ORDERS SECOND DOSE OF ROMAZICON 0.25 MG IV, ADMINISTERED AT THIS TIME 0155: NS 250 ML BOLUS ORDERED AND STARTED INFUSING FROM PREVIOUSLY RUNNING NS LITER 0159: DIFFICULTY OBTAINING BP, MANUAL ATTEMPTED, BOLUS VOLUME INCREASED TO 500 ML AT THIS TIME, INFUSION PUMP SETTINGS ADJUSTED PER ORDERS. RT REMAINS AT BEDSIDE, BIPAP APPLIED, PRESSURES 10/8, BUR 12, FIO2 30% 0200: DR RÍOS REMAINS AT BEDSIDE, ROMAZICON 0.5 MG IV ORDERED AT THIS TIME, ADMINISTERED, TOTAL ROMAZICON ADMINISTERED OF THIS TIME IS NOW 1 MG IV. 0204: LEVOPHED ORDERED, STARTING INFUSION AT 5 MCG/MIN, CONTINUES IN AFIB 130-170S AT THIS TIME, PRESSURES CONTINUE TO BE DIFFICULT TO OBTAIN, MD AWARE 0205: PT IS RESPONSIVE BUT LETHARGIC, TOLERATING BIPAP WELL, SATS NOW 96%, PRESSURE 85/51 WITH MAP OF 64 0258: DR SPANN ARRIVES TO BEDSIDE, PLAN TO ATTEMPT CARDIOVERSION, PIPE TESTING TECHNICIAN NOTIFIED, RT NOTIFIED. THIS RN INSTRUCTED TO CANCEL AMIODARONE BOLUS AND ADMINISTER AMIODARONE 150 MG IV PUSH, AMIODARONE ADMINISTERED PER ORDERS 0307: DR SPANN REMAINS AT BEDSIDE, 2ND DOSE OF AMIODARONE 150 MG IV ADMINISTERED AT THIS TIME PER VERBAL ORDER. HEPARIN BOLUS ADMINISTERD PER DR SPANN. 0310: RT AT BEDSIDE, PIPE TESTING TECHNICIAN AT BEDSIDE, DR SPANN AT BEDSIDE, VERSED 1 MG IV ADMINISTERED, FENTANYL 25 MCG IV ADMINISTERED. 0312: DR ZANA HOLDING PRESSURE WITH [address] OVER ANTERIOR DEFIBRILATOR PAD, PIPE TESTING TECHNICIAN INSTRUCTED TO DELIVER SYNCHRONIZED CARDIOVERSION WHILE DR SPANN CONTINUES TO HOLD PRESSURE WITH TOWELS. SYNCHRONIZE SHOCK DELIVERED AT 250 JOULES, PT IS NOW SINUS RHYTHM WITH RATE IN THE 80S, PRESSURE CONTINUES TO BE DIFFICULT TO OBTAIN, MD AWARE 0330: ER PHYSICIAN ARRIVES TO BEDSIDE FOR INTUBATION PER DR SPANN'S REQUEST, KETAMINE 250 MG IV ADMINISTERED PER ER MD 0332: PT VOMITED PROFUSE AMOUNT OF DARK BROWN GASTRIC CONTENTS, SUCTION WITH YANKAUER, POSSIBLE ASPIRATION OF GASTRIC CONTENTS. 0332: PT IS INTUBATED WITH 8.0 ETT 25 CM AT [facility], POSITIVE COLOR CHANGE IS NOTED, BILAT BREATH SOUNDS PRESENT, CXR ORDERED TO CONFIRM PLACEMENT. 0335: PRESSURE 42/33, LEVOPHED INCREASED TO 15 MCG/MIN 0345: OG TUBE IN PLACE AIR AUSCULTATED OVER LUQ AND GOOD RETURN OF BROWN GASTRIC CONTENTS. 0350: IMAGING AT BEDSIDE FOR PORTABLE CXR, HEART RATE 60S, SATS LOW 80S 0354: DOBUTAMINE STARTED INFUSING AT 5 MCG/KG/MIN PER DR SPANN 0400: LEVOPHED INCREASED TO 20 MCG/MIN 0409: CODE BLUE ACTIVATED, COMPRESSIONS STARTED FOR BRADYCARDIA TO 30S WITH LOSS OF PULSE, AMIODARONE TO STANDBY, SEE CODE BLUE SHEET 0414: ROSC ACHEIVED. PT CONTINUES HYPOTENSIVE, RN MOLD POLISHER CONTINUES ATTEMPT TO CONTACT PT SPOUSE 0420: AMIODARONE GTT RESUMED AT 0.5 MG/MIN PER DR SPANN AT BEDSIDE. 0427: CODE BLUE ACTIVATED, SEE CODE BLUE SHEET 0429: ROSC, BICARB 1 AMP IV ADMINISTERED PER DR RÍOS AT BEDSIDE 0433: COMPRESSIONS STARTED FOR LOSS OF PULSE, SEE CODE BLUE SHEET, NS 500 ML BOLUS STARTED INFUSING, LACTIC ACID 7.5, DR RÍOS AT BEDSIDE AND AWARE 0436: ROSC, HYPOTENSION CONTINUES 0515: SPOUSE ARRIVES TO BEDSIDE, SPEAKING WITH DR RÍOS 0530: PT IS NOW DNR STATUS WITH PLAN TO MOVE TO COMFORT CARE AFTER ARRIVAL OF FAMILY CURRENTLY DRIVING IN TO HOSPITAL 0602: MULTIPLE FAMILY MEMBERS AT BEDSIDE INCLUDING SPOUSE, PT IN ASYSTOLE, CONFIRMED IN 2ND LEAD, PULSES AND HEART TONES ABSENT, RT CONTACTED TO POWER DOWN VENTILATOR.
== END 2020-11-21 11:04 | DRG 308 ==
LOC: ER 21:57 → ICUW 23:40
PROVIDERS: Internal Medicine; Internal Medicine Cardiovascular Disease; Student in an Organized Health Care Education/Training Program; ADMIT Internal Medicine
PROC: 5A2204Z Restoration of Cardiac Rhythm, Single (ICD-10-PCS; 2020-11-20)
PROC: 02HV33Z Insertion of Infusion Device into Superior Vena Cava, Percutaneous Approach (ICD-10-PCS; 2020-11-20)
PROC: 0BH17EZ Insertion of Endotracheal Airway into Trachea, Via Natural or Artificial Opening (ICD-10-PCS; principal; 2020-11-21)
PROC: 5A1935Z Respiratory Ventilation, Less than 24 Consecutive Hours (ICD-10-PCS; 2020-11-21)
PROC: 5A12012 Performance of Cardiac Output, Single, Manual (ICD-10-PCS; 2020-11-21)
PROC: 3E043XZ Introduction of Vasopressor into Central Vein, Percutaneous Approach (ICD-10-PCS; 2020-11-21)
PROC: 5A09357 Assistance with Respiratory Ventilation, Less than 24 Consecutive Hours, Continuous Positive Airway Pressure (ICD-10-PCS; 2020-11-21)
DX: I48.0 Paroxysmal atrial fibrillation (principal); J96.00 Acute respiratory failure, unspecified whether with hypoxia or hypercapnia; I50.22 Chronic systolic (congestive) heart failure; C78.00 Secondary malignant neoplasm of unspecified lung; R57.0 Cardiogenic shock; Z51.5 Encounter for palliative care; I11.0 Hypertensive heart disease with heart failure; E03.9 Hypothyroidism, unspecified; E86.9 Volume depletion, unspecified; D70.1 Agranulocytosis secondary to cancer chemotherapy; T45.1X5A Adverse effect of antineoplastic and immunosuppressive drugs, initial encounter; Z68.36 Body mass index [BMI] 36.0-36.9, adult; E66.01 Morbid (severe) obesity due to excess calories; I95.9 Hypotension, unspecified; M25.551 Pain in right hip; K52.9 Noninfective gastroenteritis and colitis, unspecified; I42.9 Cardiomyopathy, unspecified; G89.29 Other chronic pain; Z91.048 Other nonmedicinal substance allergy status; Z85.3 Personal history of malignant neoplasm of breast; Z90.13 Acquired absence of bilateral breasts and nipples; Z79.899 Other long term (current) drug therapy; Z79.01 Long term (current) use of anticoagulants; Z90.49 Acquired absence of other specified parts of digestive tract; Z98.890 Other specified postprocedural states; Z98.51 Tubal ligation status; X58.XXXA Exposure to other specified factors, initial encounter
CPT/HCPCS: 31500; 36415; 36600; 51702; 71045; 80047; 80048; 80053; 81001; 82803; 83605; 83735; 83880; 84484; 85007; 85014; 85025; 85027; 85610; 85730; 87040; 87493; 92950; 93005; 93010; 94002; 94660; 96361; 96365; 96372; 96374; 96375; 96376; 99285-25; A9270; G0378; J0282; J0461; J0692; J1160; J1250; J1447; J1644; J1650; J2250; J2405; J3010; J3370; J3475; J7030; J7050; J7060; J7070